=== PATIENT | male | born 1975 | race Caucasian/White ===

== ENCOUNTER 2017-02-18 11:45 | Emergency (ER) | payer MEDICAID ==
[~2017-02-18] VITALS: Ht 170.2 cm; Wt 78.0 kg
[~2017-02-18 11:45] MED LIST: ALPR0.5T PO; CIPR500T4 PO; FERR-49 PO; FLUC100T39 PO; LINE600T PO
[2017-02-18 11:46] VITALS: Ht 170.2 cm; Wt 78.0 kg
[2017-02-18] MEDS ORDERED: LORAZEPAM 1 MG TAB PO ONE ×2 (12:30→13:30)
--- NOTE | 2017-02-18 13:36 | ERD ---
ER Documentation Chief Complaint Date/Time DATE: 02/18/17 TIME: 13:33 Chief Complaint anxiety x 2 days HPI 41-year-old male patient with a past medical history of anxiety presents to the ED complaining of an anxiety attack that started 2 days ago. Reports that he feels like its racing and feels pressure on his chest. States that he used to take Xanax but has not needed to take medication intermittently long time. States that he has been stressed. Denies any numbness or tingling, vision loss, shortness of breath, cough, fever, chills, abdominal pain, nausea, vomiting. Reports that he is also here for clearance for work at he was diagnosed with cervical osteomyelitis in 2013. Denies any suicidal and homicidal ideations. ROS All systems reviewed and are negative except as per history of present illness. Medications Home Meds Active Scripts Alprazolam* (Xanax*) 0.5 Mg Tab, 0.5 MG PO Q8H Y for ANXIETY, #10 TAB Prov:OSMANY TROY NP 04/13/16 Reported Medications Linezolid* (Zyvox*) 600 Mg Tablet, 600 MG PO BID, TAB 12/29/13 Fluconazole* (Fluconazole*) 100 Mg Tablet, 100 MG PO DAILY, TAB 12/29/13 Ferrous Sulfate* (Feosol*) 1 Tab Tablet, 325 MG PO BID, TAB 12/29/13 Ciprofloxacin Hcl* (Ciprofloxacin Hcl*) 500 Mg Tablet, 500 MG PO BID, TAB 12/29/13 Allergies Allergies: Coded Allergies: No Known Drug Allergies (Verified Allergy, Unknown, 02/18/17) PMhx/Soc History of Surgery: Yes (ankle surgery) Anesthesia Reaction: No Hx Respiratory Disorders: No Hx Cardiac Disorders: No Hx Psychiatric Problems: Yes (DEPRESSION 23 YRS OLD, anxiety) Hx Miscellaneous Medical Probl: Yes (drug abuse, osteomyelitis,hep C) Hx Alcohol Use: No Hx Substance Use: No Hx Tobacco Use: No (DENIES SMOKING, SMELLS OF CIGARETTES ) Smoking Status: Unknown if ever smoked Physical Exam Vitals Vital Signs Date Time Temp Pulse Resp B/P Pulse Ox O2 Delivery O2 Flow Rate FiO2 02/18/17 11:46 97.7 55 18 132/84 98 Physical Exam Const: [id number], well-nourished. In no acute distress. Head: Atraumatic, normocephalic Eyes: Normal Conjunctiva without injection. No purulent discharge. PERRL. EOMI ENT: Normal external ear. Ear canal without erythema. Tympanic membrane pearly michaels without effusion or bulging. Nasal canal clear with normal turbinates. Moist oropharynx without tonsillar exudates. Non-erythematous pharynx. Uvula midline. No drooling. No trismus. Neck: Full range of motion. No meningismus. No cervical lymphadenopathy. Resp: Clear to auscultation bilaterally. No wheezing, rhonchi, rales, or crackles. No accessory muscle use. No retractions. Cardio: Regular rate and rhythm. No murmurs, rubs or gallops. Abd: Soft, non tender, non distended. Normal bowel sounds. No palpable masses. No rebound tenderness. No guarding. Skin: No petechiae or rashes Back: No midline tenderness. No CVA tenderness. Ext: No cyanosis, or edema. Neur: Awake and alert. Psych: Normal Mood and Affect Results 24 hrs Current Medications Medications (Trade) Dose Ordered Sig/Rachel Route PRN Reason Start Time Stop Time Status Last Admin Dose Admin Lorazepam (Ativan) 1 mg ONCE ONCE PO 02/18/17 12:30 02/18/17 12:31 DC 02/18/17 12:38 Lorazepam (Ativan) 1 mg ONCE ONCE PO 02/18/17 13:30 02/18/17 13:31 DC 02/18/17 13:28 Procedures/MDM This is a 41-year-old male patient with a past medical history of anxiety presents the ED complaining of an anxiety attack that occurred 2 days ago. Patient is afebrile and nontoxic-appearing. Patient's normal vital signs. EKG was ordered to further evaluate patient. Patient was given 2 mg Ativan with improvement of his symptoms. EKG reviewed and interpreted by Dr. Anna Rate/Rhythm: [60 bpm, Normal Sinus Rhythm] No ectopy, no ST elevations, normal axis. QRS, ST, T-waves: [No changes consistent w/ acute ischemia] Impression: [No evidence of ischemia or arrhythmia] Patient's symptoms are likely secondary to anxiety. Low suspicion for acute myocardial infarction, pneumothorax, pneumonia, cardiac tamponade, pulmonary embolism, AAA, aortic dissection, Boerhaave's syndrome, cardiac dysrhythmias, meningitis, intracranial bleed, seizure, stroke, TIA or other emergent conditions. Follow up with primary care physician in 1-2 days for clearance to work and play sports further evaluation and management of his anxiety. Instructed patient to return to the ED sooner for any worsening symptoms. Patient's questions were answered. Patient understood and agreed with discharge plan. Patient discharged stable. Departure Diagnosis: Primary Impression: Anxiety Condition: Stable Patient Instructions: Your Body's Response to Anxiety, Anxiety Reaction Referrals: AFSANEH SANTORO MD [facility] YOU HAVE RECEIVED A MEDICAL SCREENING EXAM AND THE RESULTS INDICATE THAT YOU DO NOT HAVE A CONDITION THAT REQUIRES URGENT TREATMENT IN THE EMERGENCY DEPARTMENT. FURTHER EVALUATION AND TREATMENT OF YOUR CONDITION CAN WAIT UNTIL YOU ARE SEEN IN YOUR DOCTORS OFFICE WITHIN THE NEXT 1-2 DAYS. IT IS YOUR RESPONSIBILITY TO MAKE AN APPOINTMENT FOR FOLOW-UP CARE. IF YOU HAVE A PRIMARY DOCTOR --you should call your primary doctor and schedule an appointment IF YOU DO NOT HAVE A PRIMARY DOCTOR YOU CAN CALL OUR PHYSICIAN REFERRAL HOTLINE AT IF YOU CAN NOT AFFORD TO SEE A PHYSICIAN YOU CAN CHOSE FROM THE FOLLOWING [facility] [address] [facility]. [facility] [address] [facility]. [facility] [address] [facility] [facility] [address] [facility] [facility] [address] [facility]. [facility]. [address] [facility]. [facility] YOU HAVE RECEIVED A MEDICAL SCREENING EXAM AND THE RESULTS INDICATE THAT YOU DO NOT HAVE A CONDITION THAT REQUIRES URGENT TREATMENT IN THE EMERGENCY DEPARTMENT. FURTHER EVALUATION AND TREATMENT OF YOUR CONDITION CAN WAIT UNTIL YOU ARE SEEN IN YOUR DOCTORS OFFICE WITHIN THE NEXT 1-2 DAYS. IT IS YOUR RESPONSIBILITY TO MAKE AN APPOINTMENT FOR FOLOW-UP CARE. IF YOU HAVE A PRIMARY DOCTOR --you should call your primary doctor and schedule and appointment IF YOU DO NOT HAVE A PRIMARY DOCTOR YOU CAN CALL OUR PHYSICIAN REFERRAL HOTLINE AT . IF YOU CAN NOT AFFORD TO SEE A PHYSICIAN YOU CAN CHOSE FROM THE FOLLOWING [facility] INSTITUTIONS: [facility] [address] [place] [address] [facility] [address] [place] [address] [facility] [address] [place] [address] [facility]RGENT C[facility]/SPECIALT[facility] Urgent Care 7 a.m.- 11 p.m. Every Day of the Week NO APPOINTMENT OR AUTHORIZATION NEEDED SO [facility] Hours: Mon-Fri 9:00 AM - 5:00 PM Additional Instructions: Call your primary care doctor for an appointment during the next 2-3 days.See the doctor sooner or return here if your condition worsens before your appointment time. No work or sports until cleared by primary care physician or specialist doctor. TIMOTHY WILL PA-C Feb 18, 2017 13:36
== END 2017-02-18 13:39 | disposition home or self-care (01) ==
LOC: FTE 11:45
DX: F41.9 Anxiety disorder, unspecified (principal)
CPT/HCPCS: 93005; Z7610